=== PATIENT | female | born 1970 | race Caucasian/White ===

== ENCOUNTER 2019-03-26 19:54 | Emergency (ER) | payer BC, SELFPAY ==
[2019-03-26 20:00] VITALS: BP 169/101; PULSE 83; RESP 16; TEMP 36.9; O2SAT 96
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
== END 2019-03-26 20:20 | disposition home or self-care (01) ==
PROVIDERS: Emergency Provider Emergency Medicine; PCP Nurse Practitioner Family
DX: M25.562 Pain in left knee (principal)
CPT/HCPCS: 99283

== ENCOUNTER 2019-03-27 07:33 | Outpatient (CLI) | payer BC, SELFPAY ==
--- NOTE | 2019-03-27 08:48 | DI.US_ITS ---
EXAM: US LOWER EXTREMITY VENOUS LT US LOWER EXTREMITY VENOUS LT CLINICAL HISTORY: LT LEG PAIN, SWELLING. LT LEG PAIN, SWELLING TECHNIQUE: Lower extremity venous ultrasound performed using grayscale, color-flow, and spectral Dop pler analysis. COMPARISON: No exams were available for comparison FINDINGS: The common femoral, femoral and popliteal veins demonstrate normal compressibility, augmentation, and color Doppler. The posterior tibial veins are patent. The saphenous vein appears free of thrombus. No Reddy's cyst or hematoma is seen. IMPRESSION: No evidence of DVT.
== END 2019-03-27 07:53 ==
PROVIDERS: PCP Nurse Practitioner Family; Visit Provider Emergency Medicine
DX: M79.605 Pain in left leg (principal); R22.42 Localized swelling, mass and lump, left lower limb
CPT/HCPCS: 93971

== ENCOUNTER 2019-03-27 09:16 | Emergency (ER) | payer BC, SELFPAY ==
[2019-03-27 09:17] VITALS: BP 166/105; PULSE 71; RESP 14; TEMP 36.6; O2SAT 95
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
== END 2019-03-27 10:30 | disposition home or self-care (01) ==
PROVIDERS: Emergency Provider Student in an Organized Health Care Education/Training Program; PCP Nurse Practitioner Family
DX: M25.561 Pain in right knee (principal)
CPT/HCPCS: 29505; 99283; L1830

== ENCOUNTER 2019-06-29 13:15 | Outpatient (CLI) | payer BC, SELFPAY ==
[2019-07-05 15:53] LABS: COVID-19 RT-PCR Result Not Detected (NotDetected)
== END 2019-06-29 13:35 ==
PROVIDERS: PCP Nurse Practitioner Family; Visit Provider Nurse Practitioner Family
DX: Z11.59 Encounter for screening for other viral diseases; R68.89 Other general symptoms and signs; Z20.828 Contact with and (suspected) exposure to other viral communicable diseases
CPT/HCPCS: 87449; U0003

== ENCOUNTER 2020-02-15 09:48 | Outpatient (CLI) | payer BC, SELFPAY ==
[2020-02-19 23:20] LABS: Patient Race White; SARS-CoV-2 RNA Undetected (Undetected); SARS-CoV-2 Specimen Source Nasal
== END 2020-02-15 10:08 ==
PROVIDERS: PCP Nurse Practitioner Family; Visit Provider Nurse Practitioner Family
DX: J06.9 Acute upper respiratory infection, unspecified (principal)
CPT/HCPCS: U0003

== ENCOUNTER 2020-04-15 11:02 | Outpatient (CLI) | payer MEDICAID, SELFPAY ==
[2020-04-15 12:55] LABS: ALT 40 U/L (14-59); AST 24 U/L (15-37); Alkaline Phosphatase 95 U/L (46-116); Anion Gap 7.3 mmol/L (3-11); BUN 16 mg/dL (7-18); Bilirubin, Total 0.4 mg/dL (0.2-1.0); CO2 29.7 mmol/L (21.0-32.0); Calcium 9.4 mg/dL (8.5-10.1); Calculated LDL 116 mg/dL (<100); Chloride 101 mmol/L (98-107); Cholesterol 216 mg/dL (<200); Glucose 150 mg/dL (74-106); HDL Cholesterol 53 mg/dL (40-60); Potassium 3.9 mmol/L (3.5-5.1); Sodium 138 mmol/L (136-145); TSH (W/Ref FT4) 3.24 uIU/mL (0.36-3.74); Total Protein 7.7 g/dL (6.4-8.2); Triglyceride 237 mg/dL (<150)
== END 2020-04-15 11:22 ==
PROVIDERS: PCP Nurse Practitioner Adult Health; Visit Provider Nurse Practitioner Adult Health
DX: R73.01 Impaired fasting glucose (principal); R03.0 Elevated blood-pressure reading, without diagnosis of hypertension
CPT/HCPCS: 36415; 80053; 80061; 84443

== ENCOUNTER 2020-04-19 11:06 | Outpatient (REF) | payer MEDICAID, SELFPAY ==
--- NOTE | 2020-04-19 11:12 | PAPFT_PTH ---
PATIENT: Daphne Olson LOC: [facility] U#:[id number] AGE/SX: 50/F ROOM: RE04/19/[address]: Luna Lopez APRN : 1970 BED: DIS: 04/19/2020 SPEC #: [id number] RECD: 04/19/20 12:59 STATUS: GERMAINE RETonya #: [id number] SARITA: 04/19/20 11:[address]: Luna Lopez DEPT: [facility] Cytology RECD BY: Janie Jarvis Tissues: 1 - CX/ENDOCX FOR PAP SMEARS Procedures: PAP THIN PREP/UVM Screening HPV DNA PROBE Comments: [id number]
== END 2020-04-19 11:26 ==
LOC: LBN 11:06
PROVIDERS: PCP Nurse Practitioner Adult Health; Visit Provider Nurse Practitioner Adult Health
DX: Z12.4 Encounter for screening for malignant neoplasm of cervix (principal); Z11.51 Encounter for screening for human papillomavirus (HPV)
CPT/HCPCS: 88142; 87624

== ENCOUNTER 2020-11-14 16:30 | Emergency (ER) | payer MEDICAID, SELFPAY ==
[2020-11-14] VITALS (36 sets, daily range): BP systolic 112–146; BP diastolic 67–83; PULSE 68–101; RESP 10–17; TEMP 36.2; O2SAT 94–100
--- NOTE | 2020-11-14 16:30 | RT.EKG_ITS ---
APPROVED REPORT Exam: Resting ECG Reason for Exam: sob Patient Location: E HR:104 bpm ECG Measurements Heart Rate 104 AXIS AL 158 P 39 QRSd 88 QRS -20 QT 327 T 60 QTc 429 Conclusion Sinus tachycardia. No ST elevation
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
[2020-11-14 17:22] LABS: ALT 47 U/L (14-59); AST 21 U/L (15-37); Albumin 4.4 g/dL (3.4-5.0); Alkaline Phosphatase 122 U/L (46-116); Anion Gap 13.1 mmol/L (3-11); BUN 30 mg/dL (7-18); Bilirubin, Total 0.6 mg/dL (0.2-1.0); CO2 25.9 mmol/L (21.0-32.0); CREATININE 1.2 mg/dL (0.55-1.02); Calcium 9.8 mg/dL (8.5-10.1); Chloride 102 mmol/L (98-107); Estimated GFR 47.75 (mL/min/1.73m2); Glucose 165 mg/dL (74-106); Potassium 4.1 mmol/L (3.5-5.1); Sodium 141 mmol/L (136-145); Total Protein 8.8 g/dL (6.4-8.2)
[2020-11-14 17:26] LABS: Abs Immature Grans 0.03 10^3/uL (0.0-0.06); Absolute Basophil Count 0.04 10^3/uL (0.0-0.2); Absolute Eosinophil Count 0.13 10^3/uL (0.0-0.7); Absolute Lymphocyte Count 2.68 10^3/uL (1.2-3.4); Absolute Monocyte Count 0.68 10^3/uL (0.1-0.8); Absolute Neutrophil Count 5.56 10^3/uL (1.2-6.7); Basophils % 0.4; Eosinophils % 1.4; HCT 44.4 % (36.0-46.0); HGB 14.3 g/dL (11.2-15.7); Immature Grans % 0.3; Lymphocytes % 29.4; MCH 29.5 pg (27.0-33.0); MCHC 32.2 % (32.0-36.0); MCV 91.5 fL (80-95); MPV 9.5 fL (8.0-11.0); Monocytes % 7.5; Nucleated RBC 0 %; Platelet Count 323 10^3/uL (130-400); RBC 4.85 10^6/uL (3.93-5.22); RDW 12.1 % (11.7-14.6); RDW-SD 40.9 fL; WBC 9.12 10^3/uL (4.4-10.8)
[2020-11-14 17:27] LABS: NT-proBNP 19 pg/mL (<300)
[2020-11-14 17:28] LABS: Troponin I < 0.05 ng/mL (<0.06)
--- NOTE | 2020-11-14 17:37 | DI.RAD_ITS ---
Exam(s) XR CHEST 2V PA LATERAL EXAM: XR CHEST 2V PA LATERAL CLINICAL HISTORY: CP/SOB TECHNIQUE: 2D digital imaging was performed. COMPARISON: No exams were available for comparison FINDINGS: The heart is not enlarged. The lungs are clear and well expanded. No pleural effusion seen. Mediastin al contours appear intact. IMPRESSION: Normal chest. RADIATION DOSE DELIVERED: Total DLP
--- NOTE | 2020-11-14 17:54 | DI.VRAD_ITS ---
PROCEDURE INFORMATION: Exam: XR Chest Exam date and time: 11/14/2020 4:50 PM Age: 50 years old Clinical indication: On breathing; Patient HX: Chest pain, SOB TECHNIQUE: Imaging protocol: XR of the chest. Views: 2 views. COMPARISON: No relevant prior studies available. FINDINGS: Lungs: Unremarkable. No consolidation. Pleural spaces: Unremarkable. No pleural effusion. No pneumothorax. Heart/Mediastinum: Unremarkable. No cardiomegaly. Bones/joints: Unremarkable. IMPRESSION: No acute findings. Dictated and Authenticated by: Ede Thapa MD. Ordering:EDUARD Haddad MD
[2020-11-14] MEDS: Normal Saline 1,000 ML 1000 ML IV (17:59)
--- NOTE | 2020-11-14 19:45 | RT.EKG_ITS ---
APPROVED REPORT Exam: Resting ECG Reason for Exam: repeat troponin Patient Location: E HR:68 bpm ECG Measurements Heart Rate 68 AXIS VT 176 P 41 QRSd 86 QRS -2 QT 386 T 41 QTc 410 Conclusion Sinus rhythm...normal P axis, V-rate 60- 99 Inferior infarct, old...Q >35mS, II III aVF Borderline ST elevation, lateral leads...ST >0.06mV, I aVL V5 V6 EKG looks better in regards to ST segments compared to prior but rate has changed from [address] elevation in the lateral leads per computer read. Q in III but AvF is isoelectirc.
[2020-11-14 20:04] LABS: Troponin I < 0.05 ng/mL (<0.06)
== END 2020-11-14 20:45 | disposition home or self-care (01) ==
PROVIDERS: Emergency Medicine; Emergency Provider Emergency Medicine; PCP Nurse Practitioner Adult Health
DX: R06.09 Other forms of dyspnea (principal); R00.2 Palpitations; R07.89 Other chest pain
CPT/HCPCS: 36415; 80053; 93005; 96360; 99284; 71046; 83735; 83880; 84484; 85025; 93010

== ENCOUNTER 2020-11-26 02:02 | Outpatient (CLI) | payer MEDICAID, SELFPAY ==
--- NOTE | 2020-11-26 10:00 | DI.NM_ITS ---
APPROVED REPORT Exam: Exercise Treadmill Patient Location: Out-Patient Room/Bed: Stress Nurse: Verenice Blood RN Ordering Provider:NAHID HERNÁNDEZ, Contact Number: [phone] BMI: 36.79 Baseline Rhythm: Sinus Rhythm Comment: Diffuse ST elevation anterior and inferior leads Indications: SOB Medical History Medical History: Hypertension, diabetes type II, obesity, depression Cardiac Medications: Metformin, lisinopril, atorvastatin Allergies: NKA Cardiac Risk Factors: Hypertension, diabetes type II, obesity, family hx Previous Cardiac Procedures: None Pretest Chest Pain Characteristics: None Exercise History: Sedentary Physical Disabilities: None Lung Sounds: Clear to auscultation Heart Sounds: Regular Stress Test Details Test: Exercise stress testing was performed using a Cas protocol. Nuclear Acquisition: Rest Tc-99m/Stress Tc-99m 1 day Rest Isotope: Tc-99m Sestamibi. Dose: 10.2 Date: 11/26/2020 Injection Time: 1030 Stress Isotope: Tc-99m Sestamibi. Dose: 32.0 Date: 11/26/2020 Injection Time: 1227 HR Resting HR Supine: 62 bpm Max Heart Rate (APMHR): 171.063011 bpm Resting HR Standin bpm Target HR (85% APMHR): 145.291758 bpm Max HR Achieved: 162 bpm % of APMHR: 94.74 Recovery HR: 80 bpm HR response to stress: Normal HR response to stress BP Resting BP Supine: 140/80 mmHg Resting BP Standin/84 mmHg Max BP: 180/80 mmHg Recovery BP: 148/80 mmHg BP response to stress: Normal blood pressure response to stress. ECG Resting ECG: Sinus Rhythm Ectopy: None Comment: Diffuse ST elevation anterior and inferior leads Stress ECG: Sinus Tachycardia ST Change: No significant ST segment changes noted Arrhythmia: None Recovery ECG: Sinus Rhythm Recovery ST Change: No significant ST segment changes noted Recovery Arrhythmia: None Clinical Reason for Termination: Fatigue Stress Symptoms: General Fatigue, Chest tightness Exercise duration: 7 min54 sec Highest Stage Reached: Stage 3: 3.4 mph at 14% grade. Exercise capacity: 9.97 METs Rate Pressure Product: [id number] Stress ECG Conclusion 1. The patient exercised for 8 minutes (10 METS). The patient no symptoms suggestive of ischemia. 2. The patient had significant baseline ST abnormalities. 3. The ECG portion of this exam is nondiagnostic. Stress Test Summary STAGE Time (mins) Speed (mph) Grade (%) HR BP SYMPTOMS METS Supine 62 140/80 Standing 70 140/84 SpO2 98% 1 3 1.7 10 112 158/72 SpO2 94% 4.6 2 6 2.5 12 138 164/82 SpO2 97%, chest tightness 2/10 7 3 9 3.4 14 160 chest tightness 3/10 10.2 1 min recovery 130 180/80 SpO2 99% 3 min recovery 83 174/80 SpO2 98% chest tightness 1/10 6 min recovery 80 148/80 symptoms resolved MPI Conclusion Ejection fraction was 55% with stress. There were no wall motion abnormalities. There is no evidence of ischemia on the imaging portion of the exam. This represents a normal SPECT stress test. Radiologist Interpretation Radiologist agrees with Scabbler's Interpretation. Radiologist Interpretation by: Boo Choudhury MD Interpretation Date/Time: 11/26/2020 15:05:49
== END 2020-11-26 02:22 ==
PROVIDERS: PCP Nurse Practitioner Adult Health; Visit Provider Emergency Medicine
DX: R06.02 Shortness of breath (principal); I10 Essential (primary) hypertension; E11.9 Type 2 diabetes mellitus without complications; E66.9 Obesity, unspecified; Z82.49 Family history of ischemic heart disease and other diseases of the circulatory system
CPT/HCPCS: 78452; 93017

== ENCOUNTER 2020-11-29 02:21 | Outpatient (CLI) | payer MEDICAID, SELFPAY ==
[2020-11-29 10:43] LABS: Hemoglobin A1C 6.9 % (<5.7)
[2020-11-29 10:52] LABS: COMMENT (LAB VIEW ONLY) 60.79 mg/dL; Microalb ug/mg Crea 12.8 ug/mg Cr
[2020-11-29 11:08] LABS: Anion Gap 11.8 mmol/L (3-11); BUN 17 mg/dL (7-18); CO2 25.2 mmol/L (21.0-32.0); CREATININE 0.8 mg/dL (0.55-1.02); Calcium 8.8 mg/dL (8.5-10.1); Calculated LDL 57 mg/dL (<100); Chloride 104 mmol/L (98-107); Cholesterol 135 mg/dL (<200); Glucose 143 mg/dL (74-106); HDL Cholesterol 55 mg/dL (40-60); Potassium 4.5 mmol/L (3.5-5.1); Sodium 141 mmol/L (136-145); Triglyceride 117 mg/dL (<150)
== END 2020-11-29 02:22 | disposition home or self-care (01) ==
LOC: LBO 02:21
PROVIDERS: PCP Nurse Practitioner Adult Health; Visit Provider Nurse Practitioner Adult Health
DX: I10 Essential (primary) hypertension (principal); E11.9 Type 2 diabetes mellitus without complications
CPT/HCPCS: 36415; 80048; 80061; 82043; 82570; 83036

== ENCOUNTER 2021-01-17 11:45 | Outpatient (CLI) | payer MEDICAID, SELFPAY ==
[2021-01-17 12:26] LABS: Abs Immature Grans 0.03 10^3/uL (0.0-0.06); Absolute Basophil Count 0.04 10^3/uL (0.0-0.2); Absolute Eosinophil Count 0.15 10^3/uL (0.0-0.7); Absolute Lymphocyte Count 2.93 10^3/uL (1.2-3.4); Absolute Monocyte Count 0.64 10^3/uL (0.1-0.8); Absolute Neutrophil Count 3.96 10^3/uL (1.2-6.7); Basophils % 0.5; Eosinophils % 1.9; HCT 37.5 % (36.0-46.0); HGB 12.1 g/dL (11.2-15.7); Immature Grans % 0.4; Lymphocytes % 37.8; MCH 29.7 pg (27.0-33.0); MCHC 32.3 % (32.0-36.0); MCV 92.1 fL (80-95); Monocytes % 8.3; Neutrophils % 51.1; Nucleated RBC 0 %; Platelet Count 280 10^3/uL (130-400); RBC 4.07 10^6/uL (3.93-5.22); RDW 12.6 % (11.7-14.6); RDW-SD 42.4 fL; WBC 7.75 10^3/uL (4.4-10.8)
[2021-01-17 13:25] LABS: ALT 43 U/L (14-59); AST 23 U/L (15-37); Albumin 3.9 g/dL (3.4-5.0); Alkaline Phosphatase 128 U/L (46-116); Anion Gap 5.3 mmol/L (3-11); BUN 18 mg/dL (7-18); Bilirubin, Total 0.2 mg/dL (0.2-1.0); CO2 30.7 mmol/L (21.0-32.0); CREATININE 0.7 mg/dL (0.55-1.02); Calcium 8.9 mg/dL (8.5-10.1); Chloride 106 mmol/L (98-107); Glucose 127 mg/dL (74-106); Sodium 142 mmol/L (136-145); Total Protein 7.3 g/dL (6.4-8.2)
== END 2021-01-17 11:46 | disposition home or self-care (01) ==
LOC: LBO 11:48
PROVIDERS: PCP Nurse Practitioner Adult Health; Visit Provider Nurse Practitioner Family
DX: R23.3 Spontaneous ecchymoses (principal); R21 Rash and other nonspecific skin eruption
CPT/HCPCS: 36415; 80053; 85025

== ENCOUNTER 2021-02-21 11:20 | Outpatient (REF) | payer MEDICAID, SELFPAY ==
[2021-02-24 14:25] LABS: Chlamydia Result Negative (Negative); GC Result Negative (Negative)
== END 2021-02-21 11:21 | disposition home or self-care (01) ==
LOC: LBN 11:20
PROVIDERS: PCP Nurse Practitioner Adult Health; Visit Provider Nurse Practitioner Adult Health
DX: Z11.3 Encounter for screening for infections with a predominantly sexual mode of transmission (principal)
CPT/HCPCS: 87491; 87591

== ENCOUNTER 2021-02-27 02:14 | Outpatient (CLI) | payer MEDICAID, SELFPAY ==
[2021-02-28 09:59] LABS: Hepatitis C Ab w Rflx HCV PCR Negative (Negative)
[2021-02-28 10:11] LABS: HIV-1/2 Ag & Ab Screen Negative (Negative)
[2021-02-28 12:24] LABS: Syphilis Serology (RPR) Negative (Negative)
== END 2021-02-27 02:15 | disposition home or self-care (01) ==
LOC: LBO 02:15
PROVIDERS: PCP Nurse Practitioner Adult Health; Visit Provider Nurse Practitioner Adult Health
DX: Z11.3 Encounter for screening for infections with a predominantly sexual mode of transmission (principal); Z11.4 Encounter for screening for human immunodeficiency virus [HIV]; Z11.59 Encounter for screening for other viral diseases
CPT/HCPCS: 36415; 86803; 87389; 86592

== ENCOUNTER 2022-02-08 08:33 | Emergency (ER) | payer MEDICAID, SELFPAY ==
[2022-02-08 08:37] VITALS: BP 144/91; PULSE 100; RESP 17; TEMP 36.8; O2SAT 97
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
== END 2022-02-08 09:24 | disposition home or self-care (01) ==
PROVIDERS: Emergency Provider Nurse Practitioner Family; PCP Nurse Practitioner Adult Health
DX: U07.1 COVID-19 (principal)
CPT/HCPCS: 99281; 99283

== ENCOUNTER 2022-02-18 15:54 | Emergency (ER) | payer OTHER, MEDICAID, SELFPAY ==
[2022-02-18 16:10] VITALS: BP 174/83; PULSE 71; RESP 16; TEMP 35.9; O2SAT 98
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
== END 2022-02-18 17:56 | disposition home or self-care (01) ==
PROVIDERS: Emergency Provider Physician Assistant; PCP Nurse Practitioner Adult Health
DX: S46.811A Strain of other muscles, fascia and tendons at shoulder and upper arm level, right arm, initial encounter (principal); S16.1XXA Strain of muscle, fascia and tendon at neck level, initial encounter; S00.81XA Abrasion of other part of head, initial encounter; Y04.2XXA Assault by strike against or bumped into by another person, initial encounter
CPT/HCPCS: 99283

== ENCOUNTER 2022-02-26 03:23 | Outpatient (CLI) | payer MEDICAID, SELFPAY ==
[2022-02-26 12:52] LABS: Hemoglobin A1C 6.4 % (<5.7)
[2022-02-26 12:56] LABS: COMMENT (LAB VIEW ONLY) 57.49 mg/dL; Microalb ug/mg Crea 21.6 ug/mg Cr
[2022-02-26 13:03] LABS: Anion Gap 6.9 mmol/L (3-11); BUN 17 mg/dL (7-18); CO2 30.1 mmol/L (21.0-32.0); CREATININE 0.8 mg/dL (0.55-1.02); Calcium 9.3 mg/dL (8.5-10.1); Calculated LDL 60 mg/dL (<100); Chloride 102 mmol/L (98-107); Cholesterol 136 mg/dL (<200); Estimated GFR 89.71 (mL/min/1.73m2); Glucose 114 mg/dL (74-106); HDL Cholesterol 56 mg/dL (40-60); Potassium 3.9 mmol/L (3.5-5.1); Sodium 139 mmol/L (136-145); Triglyceride 101 mg/dL (<150)
== END 2022-02-26 03:24 | disposition home or self-care (01) ==
LOC: LOS 03:23
PROVIDERS: PCP Nurse Practitioner Adult Health; Visit Provider Nurse Practitioner Adult Health
DX: E11.9 Type 2 diabetes mellitus without complications (principal); I10 Essential (primary) hypertension
CPT/HCPCS: 36415; 80048; 80061; 82043; 82570; 83036

== ENCOUNTER → 2022-03-12 02:42 | Outpatient (CLI) | payer MEDICAID, SELFPAY ==
--- NOTE | 2022-03-12 12:30 | DI.MAMMO_ITS ---
Exam(s) MAMMO SCREENING EXAM: MAMMO SCREENING CLINICAL HISTORY: screening,z12.39 TECHNIQUE: Mammograms were interpreted according to the usual protocol including computer analysis w [facility] CAD system, tomosynthesis and C-view imaging. COMPARISON: FINDINGS: The breasts are of moderate density with fairly symmetrical distribution of fibroglandular tissue. N o dominant mass or clumped microcalcification is identified in either breast. Today's examination is a baseline examination. IMPRESSION: No specific evidence of malignancy at this time. Routine screening examinations are suggested at yea rly intervals in this age group according to the ACS ACR guidelines. BI-RADS Category 1 - Negative Breast Density - Category B - Scattered areas of fibroglandular density
== END ==
PROVIDERS: PCP Nurse Practitioner Adult Health; Visit Provider Nurse Practitioner Adult Health
DX: Z12.31 Encounter for screening mammogram for malignant neoplasm of breast (principal)
CPT/HCPCS: 77063; 77067

== ENCOUNTER 2022-05-05 18:57 | Outpatient (REF) | payer MEDICAID, SELFPAY ==
[2022-05-05 20:45] LABS: Epithelial Cells Few HPF (Negative); RBC 20-50 HPF (0-2)
[2022-05-05 20:46] LABS: Bacteria Moderate HPF (Negative); C & S Indicated? Yes; Casts Negative LPF (Negative); Crystals Negative HPF (Negative); Mucus Negative (Negative); Other Cells Negative (Negative)
== END 2022-05-05 18:58 | disposition home or self-care (01) ==
LOC: LBN 18:57
PROVIDERS: PCP Nurse Practitioner Adult Health; Visit Provider Family Medicine
DX: R35.0 Frequency of micturition (principal)
CPT/HCPCS: 81015; 87086

== ENCOUNTER 2022-08-27 02:58 | Outpatient (CLI) | payer MEDICAID, SELFPAY ==
[2022-08-27 09:47] LABS: Anion Gap 9.4 mmol/L (3-11); BUN 19 mg/dL (7-18); CO2 28.6 mmol/L (21.0-32.0); CREATININE 0.8 mg/dL (0.55-1.02); Calcium 9.2 mg/dL (8.5-10.1); Calculated LDL 70 mg/dL (<100); Chloride 102 mmol/L (98-107); Cholesterol 155 mg/dL (<200); Estimated GFR 89.15 (mL/min/1.73m2); Glucose 141 mg/dL (74-106); HDL Cholesterol 66 mg/dL (40-60); Potassium 4.3 mmol/L (3.5-5.1); Sodium 140 mmol/L (136-145); Triglyceride 96 mg/dL (<150)
[2022-08-27 10:16] LABS: Hemoglobin A1C 6.9 % (<5.7)
== END 2022-08-27 02:59 | disposition home or self-care (01) ==
LOC: LBO 02:58
PROVIDERS: PCP Nurse Practitioner Adult Health; Visit Provider Nurse Practitioner Adult Health
DX: I10 Essential (primary) hypertension (principal); E11.9 Type 2 diabetes mellitus without complications
CPT/HCPCS: 36415; 80048; 80061; 83036

== ENCOUNTER 2022-12-16 06:55 | Day surgery (SDC) | payer MEDICAID, SELFPAY ==
--- NOTE | 2022-12-16 06:12 | ANES.PREOP_ITS ---
General Info Date of Service Date Performed: 12/16/22 Height: 5 ft 6 in Weight: 99.79 kg Body Mass Index (BMI): 35.5 Surgical Procedure: Operation Date: 12/16/22 08:20 Proposed Procedure Side Surgeon gilma Begum MD Meds Allergies and Home Medications Allergies Allergy/AdvReac Type Severity Reaction Status Date / Time lisinopril AdvReac Mild cough Verified 12/16/22 07:20 Home Medication Medication Instructions Recorded multivitamin (Daily Multi-Vitamin 1 ea PO DAILY 01/04/15 tablet) vit A 300 mcg-C 200 mg-E 27 1 tab PO DAILY 06/29/19 mg-lutein 2 mg and minerals tablet (Eye Health Plus Lutein) blood-glucose meter #1 ea 08/14/20 ibuprofen 200 mg capsule 400 mg PO .every morning PRN 02/21/21 blood sugar diagnostic (Xolveuch #100 strips 08/18/21 Ultra Test strips) lancets 33 gauge ([employer] #100 ea 08/18/21 Plus Lancet) irbesartan 300 mg tablet 300 mg PO DAILY #90 tabs 03/11/22 atorvastatin 20 mg tablet 20 mg PO QHS #90 tabs 09/03/22 buspirone 10 mg tablet 10 mg PO BID #180 tabs 09/03/22 metformin 500 mg tablet,extended See Rx Instructions PO BID #270 09/03/22 release 24 hr tabs acetaminophen 325 mg tablet 500 mg PO DAILY AM 11/12/22 bisacodyl 5 mg tablet,delayed 5 mg PO ONCE #4 tabs 11/12/22 release (Dulcolax (bisacodyl)) polyethylene glycol 3350 17 17 g PO ONCE #238 grams 11/12/22 gram/dose oral powder Current Visit Medications: Current Medications Generic Name Dose Route Start Last Admin Trade Name Freq PRN Reason Stop Dose Admin Ringer's Solution 1,000 mls @ 80 mls/hr 12/16/22 06:00 IV 01/14/23 23:59 INFUSION [facility] IV Miscellaneous Supplies 1 each 12/16/22 06:00 Iv Access IV 01/14/23 23:59 DIRECTED JESSICA Sodium Chloride 0 ml 12/16/22 06:00 Normal Saline Flush 10 Ml Syr IV 01/14/23 23:59 PRN PRN Sodium Chloride 0 ml 12/16/22 06:00 Normal Saline 10 Ml Vial IJ 01/14/23 23:59 DIRECTED PRN Sterile Water 0 ml 12/16/22 06:00 Water,Injection,Sterile 10 Ml Vial IJ 01/14/23 23:59 DIRECTED PRN PFSH Active Problems Active Problems: Problem Status Onset Code Anxiety disorder ~04/2022 F41.9 Onychodystrophy ~05/2021 L60.3 Diabetes type 2, controlled ~08/2020 E11.9 Stress and adjustment reaction ~07/2020 F43.29 Skin lesion L98.9 BALTAZAR (stress urinary incontinence, female) 07/10/15 N39.3 Essential (primary) hypertension I10 Increased BMI 01/04/15 R63.8 Medical History Medical History Abrasion Adult BMI > 30 COVID (~01/2022) Depression (01/04/15) 12/2014; Tried amytriptyline in the past & did not like sedation, h/o counseling History of gestational diabetes Both pregnancies History of MRSA infection Required hospitalization Muscle strain, upper arm Palpitations Postmenopausal LMP ~2014 Strep pharyngitis Trapezius muscle strain Uterine leiomyoma (07/29/15) 07/29/2015 pelvic/transvaginal US: anterior fundal fibroid measuring 2.7 x 1.3 x 2.1 cm Surgical History Surgical History Eye surgery Left age 6 Tonsillectomy and adenoidectomy Tobacco Smoking/Tobacco Use Status: Never Passive smoking exposure: No Second hand exposure: No Alcohol Alcohol Intake: never Substance Use Substance use: Never Substance use type: does not use Vital Signs and Lab Results Lab Results Blood Type / Crossmatch: No Data to Display Complete Blood Count: No Data to Display Complete Metabolic Panel: No Data to Display Liver Function Panel: No Data to Display Coagulation Panel: No Data to Display Cardiac Panel: No Data to Display Arterial Blood Gas: No Data to Display Venous Blood Gas: No Data to Display Pancreas Panel: No Data to Display Thyroid Panel: No Data to Display Infectious Disease: No Data to Display Blood Cultures: No Data to Display Toxicology Panel: No Data to Display Panel: No Data to Display Imaging and Studies Imaging and Studies Study information below may be from another EMR and interpreted by another provider. Please see original notes in EMR for more complete details. EKG Summary: 11/30: sinus. Stress Test Summary: 11/30: 10 METS, no symptoms of ischemia, baseline ST abnormalities. EF 55%, no WMA, no evidence of ischemia. Anesthesia Assessment and Plan Anesthesia History Personal History: No History of Anesthesia Complications Family History: No Family History of Anesthesia Complications Exercise Tolerance Exercise Tolerance: Metabolic Equivalents>4 Cardiac & Pulmonary Exam Cardiac Exam: Normal S1/S2 Heart Sounds Pulmonary Exam: Clear Bilateral Breath Sounds Implantable Cardiac Device Does patient have a Pacemaker or an ICD?: No Airway Exam Known Difficult Airway: No Mallampati Class: 2 Mouth Opening: Normal (> 3cm) Thyromental Distance: Greater than 3 cm Neck Range of Motion: Full ROM Neck Circumference: Normal Teeth Condition: Normal Dentition ASA Classification ASA Score: ASA 2 Emergency Case?: No NPO Status NPO Status: NPO Clears >2 hours, Solids >8 hours Status Status: Negative HCG Anesthesia Plan Resuscitation Status: Full Code Anesthesia Technique: General Anesthesia Airway Planned: Natural Airway Monitors Used: Standard Monitors Preoperative Comments:: 52 yo female got colo. Sig PMHx: anxiety, DM2, HTN,
[2022-12-16 07:08] VITALS: BP 118/86; PULSE 98; RESP 20; TEMP 36.4; O2SAT 96
[2022-12-16] MEDS: Lactated Ringers 1,000 ML 80 ML IV (07:30)
[2022-12-16 08:03] VITALS: BMI 35.5
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
--- NOTE | 2022-12-16 08:38 | W.COLOREPORT ---
Date of service: 12/16/22 Time of Service: 08:38 Colonoscopy Report Procedure Description: Procedures performed: 1. Colonoscopy Preoperative diagnosis: Screening colonoscopy Postoperative diagnosis: Normal Colon, mild hemorrhoidal disease Surgeon: Corina Begum Anesthesia: Cristi Indication for procedure: 52-year-old woman without any symptoms, no prior colonoscopy, her mother has a history of adenomatous polyps being removed multiple times Findings: Normal terminal ileum.? Normal Colon.? Grade 2 internal hemorrhoids, mild external hemorrhoids Surveillance/follow-up recommendations: 10 years since no polyps were found. Complications: None Blood loss: Minimal Prep: Excellent Specimens:? None Procedure in detail: Written consent was obtained from the patient who was in agreement with the risks, benefits and indications of the procedure.? We went to the endoscopy suite and laid the patient in left lateral decubitus position.? Anesthesia was administered which was tolerated well.? A timeout was performed and when we are all in agreement we began the procedure. Digital rectal exam and visual examination was performed.? A well?lubricated colonoscope was advanced without difficulty all the way to the cecum identified by the ileocecal valve, and triangular folds and appendiceal orifice.? Terminal ileum was normal.? It was then slowly withdrawn.?? Retroflexion was performed in the rectum.? The findings/interventions are noted above. The scope was then removed and the patient tolerated the procedure well and was then taken back to the PACU in hemodynamically stable condition.
[2022-12-16 08:39] VITALS: BP 104/59; PULSE 76; RESP 20; TEMP 36.4; O2SAT 96
--- NOTE | 2022-12-16 08:40 | W.PM.DSUDISC ---
Date of service: 12/16/22 Time of Service: 08:40 Discharge Plan Disposition Patient Disposition: Home Condition: Good Discharge Details Attending Provider: Goyo Begum Primary Care Provider: Luna Lopez Home Meds and New Rx's Prescriptions: No Action irbesartan 300 mg tablet 300 mg PO DAILY Qty: 90 3RF Rx Instructions: Dose increase 03/11/22 atorvastatin 20 mg tablet 20 mg PO QHS Qty: 90 3RF Rx Instructions: DMT2 metformin 500 mg tablet extended release 24 hr See Rx Instructions PO BID MDD 1,000mg per 24h Qty: 270 3RF Rx Instructions: 500mg in AM and 1,000mg in PM with food PO twice a day; For diabetes buspirone 10 mg tablet 10 mg PO BID Qty: 180 3RF bisacodyl [Dulcolax (bisacodyl)] 5 mg tablet,delayed release (DR/EC) 5 mg PO ONCE Qty: 4 0RF Rx Instructions: Take per colonoscopy instructions provided by ordering providers office polyethylene glycol 3350 17 gram/dose powder 17 g PO ONCE Qty: 238 0RF Rx Instructions: Take per colonoscopy instructions provided by ordering providers office Eye Health Plus Lutein 1,000 unit-200 mg-60 unit-2 mg tablet 1 tab PO DAILY Rx Instructions: administer after a meal (DME) blood-glucose meter Misc See Rx Instructions .MEDSUPPLY Qty: 1 0RF Rx Instructions: As directed to check blood glucose daily. No insulin. Dispense covered brand. ibuprofen 200 mg capsule 400 mg PO .every morning PRN multivitamin [Daily Multi-Vitamin] 1 EACH tablet 1 ea PO DAILY (DME) lancets [OneTouch Delica Plus Lancet] 33 gauge misc See Rx Instructions .ROUTE .COMPLEX Qty: 100 3RF Dose Instruction: DIRECTED TO CHECK BLOOD GLUCOSE ONCE DAILY Rx Instructions: DIRECTED TO CHECK BLOOD GLUCOSE ONCE DAILY (DME) OneTouch Ultra Test Strip See Rx Instructions .ROUTE .COMPLEX Qty: 100 3RF Dose Instruction: DIRECTED TO CHECK BLOOD GLUCOSE ONCE DAILY Rx Instructions: DIRECTED TO CHECK BLOOD GLUCOSE ONCE DAILY acetaminophen 325 mg tablet 500 mg PO DAILY AM Discharge Instructions Additional Instructions: There were no significant findings. No polyps. Very mild hemorrhoid disease is present which is very common, benign and nothing needs to be done about it as long as the symptoms do not bother you. You should repeat another colonoscopy in 10 years. Stand Alone Forms: Colonoscopy Post Instructions Activity:: Activity as Tolerated Diet:: Normal Diet Discharge Orders Discharge Orders: Discharge Order (Routine); Ordered 12/16/22 Ordered By: Goyo Begum DS: Diagnosis Discharge Diagnosis (1) Screening for colon cancer: Status: Acute Asessment and Plan: There were no significant findings. No polyps. Very mild hemorrhoid disease is present which is very common, benign and nothing needs to be done about it as long as the symptoms do not bother you. You should repeat another colonoscopy in 10 years.
--- NOTE | 2022-12-16 08:42 | W.ANESPOSTOP ---
Postoperative Evaluation Date, Time and Location Date Performed: 12/16/22 Time Performed: 08:42 Patient Location: Day Surgery Unit Vital Signs Most Recent Imported Vital Signs: Most Recent Vital Signs Temp Pulse Resp BP Pulse Ox 36.4 C L 76 20 104/59 L 96 12/16/22 08:39 12/16/22 08:39 12/16/22 08:39 12/16/22 08:39 12/16/22 08:39 Pain Score Most Recent Pain Score: Most Recent Pain Score Pain Level 0 12/16/22 08:39 Assessment Mental Status: Awake (Alert & Oriented to Patient Baseline) Airway and Respiratory Function: Patent airway with normal (patient baseline) respiratory exam Cardiovascular Function: Hemodynamically Stable Hydration Status: Adequately Hydrated Nausea & Vomiting: No Nausea or Vomiting Pain: Pt. Denies Any Pain Peripheral Nerve Block: Patient did not receive a nerve block
[2022-12-16 09:05] VITALS: BP 117/74; PULSE 88; RESP 18; TEMP 36.6; O2SAT 99
== END 2022-12-16 09:50 | disposition home or self-care (01) ==
PROVIDERS: PCP Nurse Practitioner Adult Health; Visit Provider Student in an Organized Health Care Education/Training Program
PROC: 0DJD8ZZ Inspection of Lower Intestinal Tract, Via Natural or Artificial Opening Endoscopic (ICD-10-PCS; CPT 45378; principal; 2022-12-16 08:15)
DX: Z12.11 Encounter for screening for malignant neoplasm of colon (principal); Z83.71 Family history of colonic polyps; E11.9 Type 2 diabetes mellitus without complications; K64.4 Residual hemorrhoidal skin tags; K64.1 Second degree hemorrhoids
CPT/HCPCS: 45378; J2001

== ENCOUNTER → 2023-08-11 03:45 | Outpatient (CLI) | payer MEDICAID, SELFPAY ==
--- NOTE | 2023-08-11 08:30 | DI.MAMMO_ITS ---
Exam(s) MAMMO SCREENING EXAM: MAMMO SCREENING CLINICAL HISTORY: screening Z12.39 FOR BREAST CANCER. TECHNIQUE: Bilateral full field digital CC and MLO mammographic images were obtained with 3D tomosyn thesis and utilizing computer aided detection (CAD). COMPARISON: Prior mammograms were reviewed. FINDINGS: No new findings in the left breast. In the right breast on the cc view there is a 5 x 4 millimeter asymmetric density located 6 cm in fro m the nipple. Spot compression view recommended. There are no malignant-appearing microcalcification groups in this region or elsewhere in either [address]. There is no significant architectural distortion nor skin thickening-retraction. IMPRESSION: 1. No radiographic evidence of malignancy in left breast. 2. Asymmetric density-possible nodule in the right breast as described above. Spot compression view and ultrasound recommended. BI-RADS Category 0 - Assessment Incomplete: Need additional imaging evaluation Breast Density - Category B - Scattered areas of fibroglandular density Breast density Category C or D implies that the patient has dense breast tissue. Dense breast tissue can make it harder to find cancer on a mammogram. Dense breast tissue is also associated with an incr eased risk of breast cancer. This information about the result of the mammogram report was provided to the patient to raise their awareness. Use this report when you speak with the patient about their risks for breast cancer, which includes their family history. At that time, you may recommend additional screening tests (Ultrasoun d or MRI) as these tests may add significant information. A negative radiographic report should not delay biopsy if a dominant or clinically suspicious mass is present. Up to ten percent of cancers are not identified on mammography. A negative report may reinforce clinical impression. Adenosis and dense breasts may obscure an underlying neoplasm. False positive reports average 6 to 10%. Patient will receive a letter notifying them of these results.
== END ==
PROVIDERS: PCP Nurse Practitioner Adult Health; Visit Provider Nurse Practitioner Adult Health
DX: Z12.31 Encounter for screening mammogram for malignant neoplasm of breast (principal); R92.8 Other abnormal and inconclusive findings on diagnostic imaging of breast
CPT/HCPCS: 77063; 77067

== ENCOUNTER → 2023-08-16 02:20 | Outpatient (CLI) | payer MEDICAID, SELFPAY ==
--- NOTE | 2023-08-16 | DI.MAMMO_ITS ---
Exam(s) MAMMO SCREEN CALL BACK UNI EXAM: MAMMO SCREEN CALL BACK UNI CLINICAL HISTORY: F/U MAMMO, RT ASYMMETRIC DENSITY, R92.8,? NODULE TECHNIQUE: Spot compression views with tomographic imaging were performed. COMPARISON: 2021 and 11 Aug 2023 FINDINGS: No suspicious masses or suspicious microcalcifications are seen. No persistent abnormality is seen on the additional views performed. The findings are consistent wit h overlying fibroglandular tissue. There has been no significant change from prior exams. IMPRESSION: BI-RADS Category 1, Negative Yearly screening mammography is recommended. Breast Density - Category B, scattered fibroglandular densities.
== END ==
PROVIDERS: PCP Nurse Practitioner Adult Health; Visit Provider Nurse Practitioner Adult Health
DX: Z12.31 Encounter for screening mammogram for malignant neoplasm of breast (principal); R92.8 Other abnormal and inconclusive findings on diagnostic imaging of breast
CPT/HCPCS: 77063; 77067

== ENCOUNTER 2023-09-17 05:19 | Outpatient (CLI) | payer MEDICAID, SELFPAY ==
[2023-09-17 10:25] LABS: Hemoglobin A1C 6.7 % (<5.7)
[2023-09-17 11:31] LABS: COMMENT (LAB VIEW ONLY) 22.78 mg/dL; Microalb ug/mg Crea 95.7 ug/mg Cr
[2023-09-17 11:33] LABS: Anion Gap 12.9 mmol/L (3-11); BUN 11 mg/dL (7-18); CO2 27.1 mmol/L (21.0-32.0); Calcium 9.7 mg/dL (8.5-10.1); Calculated LDL 67 mg/dL (<100); Chloride 104 mmol/L (98-107); Cholesterol 152 mg/dL (<200); Estimated GFR 67.78 (mL/min/1.73m2); Glucose 140 mg/dL (74-106); HDL Cholesterol 67 mg/dL (40-60); Potassium 3.8 mmol/L (3.5-5.1); Sodium 144 mmol/L (136-145); Triglyceride 91 mg/dL (<150)
== END 2023-09-17 05:20 | disposition home or self-care (01) ==
LOC: LBO 05:20
PROVIDERS: PCP Nurse Practitioner Adult Health; Visit Provider Nurse Practitioner Adult Health
DX: E11.9 Type 2 diabetes mellitus without complications (principal); I10 Essential (primary) hypertension
CPT/HCPCS: 36415; 80048; 80061; 82043; 82570; 83036

== ENCOUNTER 2024-04-03 11:21 | Outpatient (CLI) | payer MEDICAID, SELFPAY ==
--- OUTSIDE RECORDS SUMMARY | 2024-04-03 11:29 | XMS_ITS | Encounter Summary ---
Author Organization [facility] Address [address] [place] [address] Care Team Providers Care Quality Analyst Name Role Phone Unknown, Provider Primary Care Provider Unava ilable Encounter Details Date Type Department Care Team (Late st Contact Info) Description 02/27/2021 Lab Requisition [facility] Pathology & Laboratory Medicine - [facility] [address] [place] [address] Outr Resulting Lab, Provider Social History Tobacco Use Types Packs/Day Years Used Date Smoking Tobacco: Never Assessed Comments Unknown Sex and Gender Information Value Date Recorded Sex Assigned at Not on file Legal Sex Female 10:14 EDT Gender Identity Not on file Sexual Orientation Not on file documented as of this encounter Plan of Treatment Not on file documented as of this encounter Procedures Procedure Name Priority Date/Time Associated Diagnosis Comments HIV 1/2 ANTIGEN AND ANTIBODY, 4TH GENERATION Routine 02/27/2021 8:18 EST documented in this encounter Results * HIV 1/2 ANTIGEN AND ANTIBODY, 4TH GENERATION (02/27/2021 8:18 EST) HIV 1 and 2 Antibody/p24 Antigen, 4th Generation Negative Negative 02/28/2021 10:07 EST [facility] Comment:If acute HIV-1 infec tion is suspected in a high risk patient, submit plasma specimen for HIV-1 RNA quantitation test. Blood VENOUS BLOOD / Unknown 02/27/2021 8:18 EST 02/27/2021 16:30 EST Narrative [facility] - 02/28/2021 10:07 EST Fourth Generation assay performed on the Siemens Centaur XPT. us Provider Outr Resulting Lab IMMUNOLOGY AND SEROL OGY ORDERABLES Final Result [facility] [address] [place] [address] documented in this encounter Visit Diagnoses Not on filedocumented in this encounter Care Teams Quality Analyst Relationship Specialty Start Date End Date Unknown, Provider, PCP - General 07/12/15 documented as of this encounter
--- OUTSIDE RECORDS SUMMARY | 2024-04-03 11:29 | XMS_ITS | Referral Summary ---
Author Organization [facility] Address [address] [place] [address] Care Team Providers Care Mechanical Estimator Name Role Phone Unknown, Provider MD Primary Care Provider Unava ilable Social History Tobacco Use Types Packs/Day Years Used Date Smoking Tobacco: Never Assessed Comments Unknown Sex and Gender Information Value Date Recorded Sex Assigned at Not on file Legal Sex Female 10:14 EDT Gender Identity Not on file Sexual Orientation Not on file Plan of Treatment Not on file Procedures Procedure Name Priority Date/Time Associated Diagnosis Comments HEPATITIS C AB W REFLEX TO HCV RNA BY PCR Routine 02/27/2021 8:18 EST from Last 3 Months or Most Recently Relevant to Health Maintenance Results * HEPATITIS C AB W REFLEX TO HCV RNA BY PCR (02/27/2021 8:18 EST) Hep C Antibody Negative Negative 02/28/2021 9:55 EST [facility] Blood VENOUS BLOOD / Unknown 02/27/2021 8:18 EST 02/27/2021 16:30 EST us Provider Outr Resulting Lab CHEMISTRY & BLOOD GA S ORDERABLES Final Result [facility] [address] [place] [address] from Last 3 Months or Most Recently Relevant to Health Maintenance Care Teams Mechanical Estimator Relationship Specialty Start Date End Date Unknown, Provider, PCP - General 07/12/15
--- OUTSIDE RECORDS SUMMARY | 2024-04-03 11:29 | XMS_ITS | Encounter Summary ---
Author Organization [facility] Address [address] [place] [address] Care Team Providers Care Correctional Lieutenant Name Role Phone Unknown, Provider Primary Care Provider Unava ilable Encounter Details Date Type Department Care Team (Late st Contact Info) Description 02/21/2021 Lab Requisition [facility] Pathology & Laboratory Medicine - [address] [address] Outr Resulting Lab, Provider Social History Tobacco [...] Procedure Name Priority Date/Time Associated Diagnosis Comments CHLAMYDIA/N. GONORRHOEAE AMPLIFIED NUCLEIC ACID Routine 02/21/2021 10:50 EST documented in this encounter Results * CHLAMYDIA/N. GONORRHOEAE AMPLIFIED RNA (02/21/2021 10:50 EST) Neisseria gonorrhoeae Result Negative Negative 02/24/2021 14:20 EST [facility] Chlamydia trachomatis Result Negative Negative 02/24/2021 14:20 EST [facility] Urine URINE / Unknown 02/21/2021 1 0:50 EST 02/21/2021 21:37 EST Narrative [facility] - 02/24/2021 14:20 EST A first catch urine specimen is acceptable for detection of Gonorrhea and Chlamydia, but might detect up to 10% fewer infections when compared with vaginal and endocervical swab samples. us Provider Outr Resulting Lab MICROBIOLOGY - GENER AL ORDERABLES Final Result [facility] [address] [place] [address] documented in this encounter Visit Diagnoses Not on filedocumented in this encounter Care Teams Correctional Lieutenant Relationship Specialty Start Date End Date Unknown, Provider, PCP - General 07/12/15 documented as of this encounter
--- OUTSIDE RECORDS SUMMARY | 2024-04-03 11:29 | XMS_ITS | Encounter Summary ---
Author Organization [facility] Address [address] [place] [address] Care Team Providers Care Nurse'S Companion Name Role Phone Unknown, Provider Primary Care Provider Unava ilable Encounter Details Date Type Department Care Team (Late st Contact Info) Description 02/27/2021 Lab Requisition [facility] Pathology & Laboratory Medicine - [address] [address] Outr Resulting Lab, Provider Social History Tobacco [...] Procedure Name Priority Date/Time Associated Diagnosis Comments SYPHILIS SEROLOGY Routine 02/27/2021 8:18 EST HEPATITIS C AB W REFLEX TO HCV RNA BY PCR Routine 02/27/2021 8:18 EST documented in this encounter Results * SYPHILIS SEROLOGY (02/27/2021 8:18 EST) Syphilis Serology Negative Negative 02/28/2021 12:19 EST [facility] Blood VENOUS BLOOD / Unknown 02/27/2021 8:18 EST 02/27/2021 16:30 EST us Provider Outr Resulting Lab IMMUNOLOGY AND SEROL OGY ORDERABLES Final Result [facility] [address] [place] [address] * HEPATITIS C AB W REFLEX TO HCV RNA BY PCR (02/27/2021 8:18 EST) Hep C Antibody Negative Negative 02/28/2021 9:55 EST [facility] Blood VENOUS BLOOD / Unknown 02/27/2021 8:18 EST 02/27/2021 16:30 EST us Provider Outr Resulting Lab CHEMISTRY & BLOOD GA S ORDERABLES Final Result [facility] [address] [place] [address] documented in this encounter Visit Diagnoses Not on filedocumented in this encounter Care Teams Nurse'S Companion Relationship Specialty Start Date End Date Unknown, Provider, PCP - General 07/12/15 documented as of this encounter
--- OUTSIDE RECORDS SUMMARY | 2024-04-03 11:29 | XMS_ITS | Encounter Summary ---
Author Organization [facility] Address [address] [place] [address] Care Team Providers Care Construction Or Leak Gang Laborer Name Role Phone Unknown, Provider Primary Care Provider Unava ilable Encounter Details Date Type Department Care Team (Late st Contact Info) Description 07/10/2015 Results Only [facility] [phone] Gabriela Brantley, BALE TIE MACHINE OPERATOR [address] [place] [address] [place] [address] [phone] Social History Tobacco Use Types Packs/Day Years [...] Procedure Name Priority Date/Time Associated Diagnosis Comments PAP TEST- RESULT ONLY Routine 07/10/2015 0:00 EDT documented in this encounter Results * PAP TEST- RESULT ONLY (07/10/2015 0:00 EDT) Pathology Report: CYTOPATHOLOGY REPORT Reports generated via electronic interface contain original data; however they are lacking the format of the original report. Caution should be taken when reading/interpreti ng unformatted reports. Name: ? PRASHANT OLSON ? Accession #: ? [id number] ? : ? 1970 (Age: 45) ??F ?Collect Date: ? 07/10/2015 ? Location: ? [facility] ? Receive Date: ? 07/12/2015 ? Provider: GABRIELA TRIANA DERRICK HAND Copy to: ? Final Report SPECIMEN ADEQUACY ? Satisfactory for Evaluation - transformation zone component present GENERAL CATEGORIZATION ? Negative for Intraepithelial Lesion or Malignancy ?? Last Menstrual Period: [id number] Specimen/Source: ??Pap Test, Cervix/Endocervix, ThinPrep Imaging System with manual evaluation Document reviewed and electronically signed by: ? Kelsi Ro, CT(ASCP) ? Report ??Date: 07/18/2015 14:15 HPV with Pap Test ? Date Ordered: ? 07/18/2015 ? Status: ?? Signed Out ?Date Complete: ? 07/22/2015 ? By: ??System Interface ? Date Reported: ? 07/22/2015 ? Interpretation RESULT: Negative for HPV. No E6 or E7 mRNA is detected from HPV types 16,18,31,33,35, 39,45,51,52,56,58, 59,66, and 68 by environmental lawyer mediated amplification. Comments Document reviewed and electronically signed by: ? System Interface ? Report date: 07/22/2015 By the signature above, the attending physician certifies that he/she has personally conducted a gross and/or microscopic examination of the described specimens and rendered or confirmed the above diagnosis. End of Report [facility] 07/10/2015 07/12/2015 us Gabriela Brantley BALE TIE MACHINE OPERATOR PATHOLOGY ORDERABLES Final Re sult [facility] [address] [place] [address] documented in this encounter Visit Diagnoses Not on filedocumented in this encounter Care Teams Construction Or Leak Gang Laborer Relationship Specialty Start Date End Date Unknown, Provider, PCP - General 07/12/15 documented as of this encounter
--- OUTSIDE RECORDS SUMMARY | 2024-04-03 11:29 | XMS_ITS | Clinical Summary ---
Author Organization [facility] Address [address] [place] [id number] Care Team Providers Care Linux System Administrator Name Role Phone Unknown, Provider MD Primary Care Provider Unava ilable Social History Tobacco Use Types Packs/Day Years Used Date Smoking Tobacco: Never Assessed Comments Unknown Sex and Gender Information Value Date Recorded Sex Assigned at Not on file Legal Sex Female 10:14 EDT Gender Identity Not on file Sexual Orientation Not on file Plan of Treatment Health Maintenance Due Date Last Done Comments Hepatitis B Vaccine (1 of 3 - 19+ 3-dose series) 04/08 COVID-19 Vaccine ( season) 2023 Hepatitis C Screen Completed 02/27/2021 Procedures Procedure Name Priority Date/Time Associated Diagnosis Comments HEPATITIS C AB W REFLEX TO HCV RNA BY PCR Routine 02/27/2021 8:18 EST from Last 3 Months or Most Recently Relevant to Health Maintenance Results * HEPATITIS C AB W REFLEX TO HCV RNA BY PCR (02/27/2021 8:18 EST) Hep C Antibody Negative Negative 02/28/2021 9:55 EST [facility] Blood VENOUS BLOOD / Unknown 02/27/2021 8:18 EST 02/27/2021 16:30 EST us Provider Outr Resulting Lab CHEMISTRY & BLOOD GA S ORDERABLES Final Result [facility] [address] [place] [address] from Last 3 Months or Most Recently Relevant to Health Maintenance Care Teams Linux System Administrator Relationship Specialty Start Date End Date Unknown, Provider, PCP - General 07/12/15
--- OUTSIDE RECORDS SUMMARY | 2024-04-03 11:29 | XMS_ITS | Clinical Summary ---
Author Organization [facility] [place] [address] Care Team Providers Care Warehouse Loader Name Role Phone Unavailable Primary Care Provider Unavailabl e Social History Tobacco Use Types Packs/Day Years Used Date Smoking Tobacco: Never Assessed Sex and Gender Information Value Date Recorded Sex Assigned at Not on file Gender Identity Not on file Sexual Orientation Not on file Plan of Treatment Health Maintenance Due Date Last Done Comments CT Colonography 1971 Colonoscopy 1971 Colorectal Cancer Screening 1970 FIT DNA 1971 FIT 1971 Sigmoidoscopy (10 year) with FIT yearly 1971 Sigmoidoscopy 1971 HIV screen 1989 Hepatitis C Screening 1989 Hepatitis B vaccine (0-59 yrs) (1) 1990 Tetanus/Diphtheria/Pertussis Vaccines (1 - Tdap) 04/08 HPV test 2001 PAP Smear 2001 Breast Cancer Share Decision Needed 2011 Breast Cancer screening 2011 Zoster vaccine (1 of 2) 2021 Covid-19 Vaccine (1 - 2023-25 season) 2023 Influenza (Flu) vaccine (1 o f 1 - Influenza standard series) 12/12/2023
--- OUTSIDE RECORDS SUMMARY | 2024-04-03 11:29 | XMS_ITS | Encounter Summary ---
Author Organization [facility] Address [address] [place] [address] Care Team Providers Care Slitting Machine Operator Name Role Phone Unknown, Provider Primary Care Provider Unava ilable Encounter Details Date Type Department Care Team (Latest Contact Info) Description 04/22/2020 Lab Requisition [facility] Pathology & Laboratory Medicine - [facility] [address] [place] [address] Luna Lopez, COMMUNICATIONS PROJECT LEAD [address] [place], [place] [id number] Encounter for screening for malignant neoplasm of cervix; Encounter for screening for human papillomavirus (HPV) Social History Tobacco Use Types Packs/Day Years [...] Name Priority Date/Time Associated Diagnosis Comments PAP TEST Today 04/19/2020 11:12 EST Encounter for screening for malignant neoplasm of cervix Encounter for screening for human papillomavirus (HPV) HPV DNA DETECTION WITH GENOTYPING, PCR Today 04/19/2020 11:12 EST Encounter for screening for malignant neoplasm of cervix Encounter for screening for human papillomavirus (HPV) documented in this encounter Results * HUMAN PAPILLOMAVIRUS (HPV) DETECTION-HIGH RISK TYPES (04/19/2020 11:12 EST) HPV other High Risk types, PCR Negative Negative 04/30/2020 14:06 EST [facility] Comment:No E6 or E7 mRNA is detected from HPV types 16,18,31,33,35,39,45,51,52,56,58,59,66, and 68 by first officer mediated amplification. Papanicolaou smear specimen (specimen) CERVIX UTERI STRUCTURE / Unknown 04/19/2020 11:12 EST 04/26/2020 13:50 EST us Luna Lopez COMMUNICATIONS PROJECT LEAD MICROBIOLOGY - GENERAL OR DERABLES Final Result [facility] [address] [place] [address] * PAP TEST (04/19/2020 11:12 EST) Specimens A. Cervix and/or Endocervix , ThinPrep Imaging System with Manual Evaluation 04/30/2020 14:07 [facility] Specimen Adequacy Satisfactory for Evaluation - transformation zone component present 04/30/2020 14:07 [facility] General Categorization Negative for intraepithelial lesion or malignancy 04/30/2020 14:07 [facility] Attestation . 04/30/2020 14:07 [facility] at 1406 Clinical History See below 04/30/19 14:07 [facility] HPV The result for the Human Papillomavirus (HPV) Detection-High Risk Types is Negative. No E6 or E7 mRNA is detected from HPV types 16,18,31,33,35,39 ,45,51,52,56,58,5 9,66, and 68 by first officer mediated amplification.Mireya ting was performed on specimen [id number] and was resulted on 04/30/2020 1402 EST by BOAZ, LAB INSTRUMENT RESULTS IN 04/30/2020 14:07 [facility] Performing Lab [facility] 04/30/2020 14:07 [facility] Scanned Images 04/30/2020 14:07 [facility] Papanicolaou smear specimen (specimen) CERVIX UTERI STRUCTURE / Unknown 04/19/2020 11:12 EST 04/22/2020 10:33 EST us Luna Lopez COMMUNICATIONS PROJECT LEAD PATHOLOGY ORDERABLES Rekha walton Result [facility] [address] [place] [id number] documented in this encounter Visit Diagnoses Diagnosis Encounter for screening for malignant neoplasm of cervix Screening for malignant neoplasm of the cervix Encounter for screening for human papillomavirus (HPV) Special screening examination for human papillomavirus (HPV) documented in this encounter Care Teams Slitting Machine Operator Relationship Specialty Start Date End Date Unknown, Provider, PCP - General 07/12/15 documented as of this encounter
--- OUTSIDE RECORDS SUMMARY | 2024-04-03 11:29 | XMS_ITS | Encounter Summary ---
Author Organization [facility] [place] [address] Care Team Providers Care Robotics Application Engineer Name Role Phone Unavailable Primary Care Provider Unavailabl e Encounter Details Date Type Department Care Team (Latest Contact Info) Description 05/29/2021 9:38 PM EST - 05/29/2021 11:59 PM EST [place] [phone] Discharge Disposition: Home Social History Tobacco Use Types Packs/Day Years Used Date Smoking Tobacco: Never Assessed Sex and Gender Information Value Date Recorded Sex Assigned at Not on file Gender Identity Not on file Sexual Orientation Not on file documented as of this encounter Plan of Treatment Not on file documented as of this encounter Procedures Procedure Name Priority Date/Time Associated Diagnosis Comments SURGICAL PATHOLOGY REPORT Routine 05/29/2021 10:19 AM EST documented in this encounter Results * Surgical Pathology Report (05/29/2021 10:19 AM EST) Final Diagnosis [id number] ? Location: [facility] The signing pathologist has (i) examined the relevant preparation(s) for the specimen(s) and (ii) rendered or confirmed the diagnosis(es). . ?Surgical Pathology DIAGNOSIS Left hallux, nail clippings: - ??No fungi are seen in PAS-reacted sections Electronically signed by: ?Chepe MAYORGA, PhD, Loly Verified: ??06/02/2021 12:41 ??Dermatopathol ogist Performed at: ??-[facility] Dept. of Pathology, [place], [place] SPECIMEN(S) SUBMITTED A - Nail Clipping from left hallux () Referring Identifier: ??[id number] CLINICAL INFORMATION Thick, dystrophic SPECIMEN PROCESSING A - Labeled/Fixativ e: Patient demographics, fresh. Quantity/Size: Three, 0.1-0.6 cm. Tissue Description: Irregular to crescent-shaped yellow-rodriguez thickened unguis tissues. Sections/Proces sing: Submitted en toto ??in 1 cassette labeled A1. ??shb 06/02/2021 12:41 PM EST [facility] NAIL SPECIMEN / Unknown 05/29/2021 10:19 AM EST 05/29/2021 10:19 AM EST Narrative Resulting Agency Comment Spec In Lab / WKS Jaqueline Lawrence APRN PATHOLOGY/CYTOLOGY ORDERABLES [facility] [place] [address] documented in this encounter Visit Diagnoses Not on filedocumented in this encounter
--- OUTSIDE RECORDS SUMMARY | 2024-04-03 11:29 | XMS_ITS | Encounter Summary ---
Author Organization [facility] Address [address] [place] [address] Care Team Providers Care Clinical Appeals Rn Name Role Phone Unknown, Provider Primary Care Provider Unava ilable Encounter Details Date Type Department Care Team (Late st Contact Info) Description 06/30/2019 Lab Requisition [facility] Pathology & Laboratory Medicine - [facility] [address] [place] [address] Lane Maguire MD [address] [place] [phone] Encounter for other general examination Social History Tobacco Use Types Packs/Day Years [...] Procedure Name Priority Date/Time Associated Diagnosis Comments COVID-19 TESTING Today 06/29/2019 14:0 0 EDT Encounter for other general examination documented in this encounter Results * COVID-19 TEST [facility] (06/29/2019 14:00 EDT) COVID-19 Result Not Detected Not Detected 07/05/2019 14:18 EDT [facility] Comment:Testing performed at [facility] ENTIRE NASOPHARYNX / Unknown 06/29/2019 14:00 EDT 06/30/2019 12:[address] Maguire MD MICROBIOLOGY - GENERAL RJ LITTLE Final Result [facility] [address] [place] [address] documented in this encounter Visit Diagnoses Diagnosis Encounter for other general examination documented in this encounter Care Teams Clinical Appeals Rn Relationship Specialty Start Date End Date Unknown, Provider, PCP - General 07/12/15 documented as of this encounter
--- NOTE | 2024-04-03 13:43 | DI.RAD_ITS ---
Exam(s) XR SHOULDER LT COMPLETE 2+V EXAM: XR SHOULDER LT COMPLETE 2+V CLINICAL HISTORY: M25.512 Pain left shoulder, r/o bony problem. TECHNIQUE: 2D digital imaging was performed. Three views. COMPARISON: No exams were available for comparison FINDINGS: BONES: No acute fracture is present. No bony destructive lesion is seen. JOINTS: No dislocation present. No significant degenerative changes of the AC joint joint SOFT TISSUE: Normal. IMPRESSION: Unremarkable radiographs of the left shoulder. DATA REPOSITORY: RADIATION DOSE DELIVERED:
== END 2024-04-03 11:41 ==
PROVIDERS: PCP Nurse Practitioner Adult Health; Visit Provider Nurse Practitioner Adult Health
DX: M25.512 Pain in left shoulder (principal)
CPT/HCPCS: 73030

== ENCOUNTER 2024-09-25 00:43 | Outpatient (CLI) | payer MEDICAID, SELFPAY ==
[2024-09-25 10:20] LABS: Hemoglobin A1C 6.2 % (<5.7)
[2024-09-25 10:31] LABS: Anion Gap 12.7 mmol/L (3-11); BUN 17 mg/dL (7-18); CO2 28.3 mmol/L (21.0-32.0); CREATININE 1.3 mg/dL (0.55-1.02); Calcium 9.8 mg/dL (8.5-10.1); Calculated LDL 48 mg/dL (<100); Chloride 102 mmol/L (98-107); Cholesterol 139 mg/dL (<200); Estimated GFR 49.17 (mL/min/1.73m2); Glucose 126 mg/dL (74-106); HDL Cholesterol 75 mg/dL (>or=50); Potassium 3.9 mmol/L (3.5-5.1); Sodium 143 mmol/L (136-145); Triglyceride 81 mg/dL (<150)
[2024-09-25 10:40] LABS: Microalb ug/mg Crea 42.8 ug/mg Cr
== END 2024-09-25 00:44 | disposition home or self-care (01) ==
LOC: LBO 00:44
PROVIDERS: PCP Nurse Practitioner Adult Health; Referring Provider Nurse Practitioner Adult Health; Visit Provider Nurse Practitioner Adult Health
DX: I10 Essential (primary) hypertension (principal); E11.9 Type 2 diabetes mellitus without complications
CPT/HCPCS: 36415; 80048; 80061; 82043; 82570; 83036